=== PATIENT | female | born 1975 | race Caucasian/White ===

== ENCOUNTER 2021-02-16 20:20 | Emergency (ER) | payer OTHER ==
[~2021-02-16 20:20] MED LIST: IBUPROFEN800 MG PO; LASIX10 MG/ML PO; MAGNESIUM30 MG PO; ROBAXIN750 MG PO; TRAMADOL HCL50 MG PO
[2021-02-16] MEDS ORDERED: NORCO 5-325 TA1 EACH PO (21:58)
== END 2021-02-16 22:40 | disposition home or self-care (01) ==
LOC: FER 20:20
DX: S92.352A Displaced fracture of fifth metatarsal bone, left foot, initial encounter for closed fracture (principal); V87.8XXA Person injured in other specified noncollision transport accidents involving motor vehicle (traffic), initial encounter
CPT/HCPCS: 73630